=== PATIENT | female | born 1950 | race Two or more races ===

== ENCOUNTER 2024-10-16 06:15 | Inpatient (IN) | payer OTHER ==
[~2024-10-16] VITALS: Ht 153 cm; Wt 93.5 kg
[2024-10-16] VITALS (7 sets, daily range): BP systolic 101–176; BP diastolic 48–73; PULSE 53–85; RESP 13–18; TEMP 97.5–97.7; O2SAT 72–100
[~2024-10-16 06:15] MED LIST: MELO7.5T7 PO; METF-370 PO; OMEP-448 PO
[2024-10-16] MEDS: ceFAZolin 2 GM/D5W100ml 100 ML IV ONE (06:24)
[2024-10-16] MEDS: TRANEXAMIC ACID 20 ML ONE (06:33)
[2024-10-16] MEDS ORDERED: MORPHINE SULF PF 5 MG/10 ML VIAL ONE (06:38)
[2024-10-16] MEDS ORDERED: KETOROLAC TROMETH 30 MG/ML 1ML VIAL ONE (06:39)
[2024-10-16] MEDS: PREGABALIN CAPSULE 75 MG CAP PO ONE (06:45)
[2024-10-16] MEDS: ACETAMINOPHEN IV 1000 MG/100ML (10MG/ML) IV ONE (06:45)
[2024-10-16] MEDS: CELECOXIB 100 MG CAP PO ONE (06:45)
[2024-10-16] MEDS ORDERED: fentaNYL CITRATE 100 MCG/2 ML VL ONE (07:02)
[2024-10-16] MEDS ORDERED: PROPOFOL 10 MG/ML 20 ML IV ONE (07:02)
[2024-10-16] MEDS ORDERED: MIDAZOLAM HCL 2MG/2ML 2ml VIAL (1mg/ml) ONE (07:02)
[2024-10-16] MEDS ORDERED: PHENYLEPHRINE HCL 10 MG/ML VL ONE (07:06)
[2024-10-16] MEDS ORDERED: MORPHINE SULFATE INJ 2 MG/ml SYRG IV PRN (07:30)
[2024-10-16] MEDS: LACTATED RINGER'S 1,000 ML IV SCH (07:30)
[2024-10-16] MEDS ORDERED: NITROGLYCERIN 0.4 MG SL TAB SL PRN (07:30)
[2024-10-16] MEDS ORDERED: DEXTROSE (50%) 50ML SYRG IV PRN (07:30)
[2024-10-16] MEDS: ceFAZolin 1GM/50ML 50 ML IV SCH (07:30)
[2024-10-16] MEDS: CEFEPIME 1GM/ 50ML 50 ML IV ONE (07:41)
[2024-10-16] MEDS: BUPIVACAINE 0.25% INJ 50ML VIAL ONE (08:28)
[2024-10-16] MEDS ORDERED: HYDROmorphone HCL 2 MG/ML VL/or syr IV PRN (09:00)
[2024-10-16] MEDS: ONDANSETRON HCL 4 MG/2 ML VIAL IV ONE (09:00)
[2024-10-16] MEDS ORDERED: MEPERIDINE HCL (25 MG/ML) 1ML VIAL IV PRN (09:00)
[2024-10-16] MEDS: ENOXAPARIN SOD 40 MG/0.4 ML SYRINGE SC SCH (10:00)
[2024-10-16] MEDS: CEFEPIME 1GM/ 50ML 50 ML IV SCH (10:00)
[2024-10-16] MEDS: VANCOMYCIN HCL 1000 MG VL ONE (10:15)
[2024-10-16] MEDS: ACCU-CHEK COMFORT CURVE STRIP VI SCH (11:30)
[2024-10-16] MEDS: InsuLIN REG 1unit/0.01ml Soln (100units/ml) SC SCH (11:30)
--- NOTE | 2024-10-16 11:31 | DVH ---
CLINICAL INDICATION: S/P SURGERY TECHNIQUE: XY R KNEE 3V XRAY Comparison: None FINDINGS/IMPRESSION: There is no evidence of acute fracture or dislocation. Right total knee arthroplasty. The alignment is anatomical. There is no radiopaque foreign body.
[2024-10-16] MEDS: PANTOPRAZOLE 40 MG/10 ML VIAL INJ IV SCH (13:30)
[2024-10-16] MEDS: DOCUSATE SOD 100 MG CAP PO SCH (13:37)
[2024-10-16] MEDS: SODIUM CHLOR 0.9% PF (SALINE LOCK) 10ML VIAL/SYR IV SCH (14:00)
[2024-10-16] MEDS: HYDROmorphone HCL 2 MG/ML VL/or syr ONE (14:20)
[2024-10-16] MEDS: ONDANSETRON HCL 4 MG/2 ML VIAL IV PRN (16:18)
--- NOTE | 2024-10-16 16:26 | DVHINCON2 ---
Date Seen: Oct 16, 2024 Referring Physician Orthopedic surgeon. Reason for Consultation Medical management. History of Present Illness 74-year-old female with a known history of diabetes mellitus type 2, GERD, previous history of total colectomy, previous history of cataract surgery who initially presented to the hospital for elective surgery for degenerative joint disease of the right knee status post right total knee arthroplasty. Patient was seen in recovery room in the presence of nurse. Patient denies any complaints denies any fever chills cough or phlegm. Past Medical History Diabetes mellitus type 2 GERD Degenerative joint disease of the right knee Past Surgical History Total abdominal hysterectomy Cataract surgery Status post right total knee arthroplasty. Allergies: Coded Allergies: Iodine (Verified Allergy, Unknown, 10/16/24) Home Meds Reported Medications Omeprazole (Omeprazole Dr) 40 Mg Cap, 40 MG PO DAILY, CAP 10/13/24 Metformin Hydrochloride (Metformin Hcl) 500 Mg Tab, 500 MG PO, TAB 10/13/24 Meloxicam (Meloxicam) 7.5 Mg Tab, 7.5 MG PO DAILY, TAB 10/13/24 Current Medications Current Medications Medications (Trade) Dose Ordered Sig/Pepe Route PRN Reason Start Time Stop Time Status Last Admin Lactated Ringer's 1,000 ml @ 100 mls/hr Q10H IV 10/16/24 07:30 Sodium Chloride (Saline Lock Ns) 10 ml Q8HR IV 10/16/24 14:00 10/16/24 14:00 Cefazolin Sodium 50 ml @ 50 mls/hr Q6H IV 10/16/24 07:30 10/16/24 20:29 10/16/24 13:39 Oxycodone/ Acetaminophen (Percocet 5/ 325MG Tablet) 1 tab Q4HP PRN PO MODERATE PAIN 10/16/24 07:30 Hydromorphone HCl (Dilaudid Injection) 1 mg Q2HP PRN IV SEVERE PAIN (7-10 PAIN SCALE) 10/16/24 07:30 Ondansetron HCl (Zofran) 4 mg Q6HP PRN IV NAUSEA / VOMITING 10/16/24 07:30 Docusate Sodium (Colace Capsule) 100 mg Q12HR PO 10/16/24 10:00 10/16/24 13:37 Enoxaparin Sodium (Lovenox) 40 mg DAILY SC 10/16/24 10:00 Nitroglycerin (Ntrostat Sublingual) 0.4 mg Q5MINP PRN SL FOR CHEST PAIN 10/16/24 07:30 Morphine Sulfate 2 mg Q30M PRN IV FOR CHEST PAIN 10/16/24 07:30 Pantoprazole Sodium (Protonix) 40 mg DAILY IV 10/16/24 10:00 10/16/24 13:30 Cefepime HCl 50 ml @ 12.5 mls/hr DAILY IV 10/16/24 10:00 Diagnostic Test (Pha) (Accu-Chek Comfort Curve T) 1 strip ACHS 10/16/24 11:30 10/16/24 11:30 Insulin Human Regular (InsuLIN R) ACHS SC 10/16/24 11:30 Dextrose 50 ml UD PRN IV Blood Sugar LESS THAN 60 10/16/24 07:30 Hydromorphone HCl (Dilaudid Injection) 0.5 mg Q10M PRN IV SEVERE PAIN (7-10 PAIN SCALE) 10/16/24 09:00 10/16/24 09:41 DC Meperidine HCl (Demerol Injection) 25 mg Q10M PRN IV MODERATE PAIN (4-6 PAIN SCALE) 10/16/24 09:00 10/16/24 09:31 DC Review of Systems Twelve review of system were negative except mentioned above. Vital Signs Vital Signs Date Time Temp Pulse Resp B/P (MAP) Pulse Ox O2 Delivery O2 Flow Rate FiO2 10/16/24 15:26 97.7 67 18 101/48 (65) 95 97.7 10/16/24 08:42 Mask 9.0 Physical Exam HEENT pupils are reactive Neck is supple CV is S1-S2 regular rate and rhythm Respiratory diminished breath sound bases GI posterior bowel sound Extremity no edema TELLER no motor deficits Assessment 74-year-old female with a known history of diabetes mellitus type 2, GERD, who was brought in by orthopedic spine surgery for elective procedure. 1. Diabetes mellitus type 2 2. GERD 3. Status post right total knee arthroplasty -Accu-Cheks Q a.c. and HS, low-dose insulin sliding scale. -pain meds as needed, DVT GI prophylaxis, physical therapy evaluation and treatment -discharge plan Plan discussed with: Patient Date of Service: Oct 16, 2024 Billing Provider: COTY CAMACHO MD Common Visit Codes: NOT BILLABLE COTY CAMACHO MD Oct 16, 2024 16:26
[2024-10-16] MEDS: HYDROmorphone HCL 2 MG/ML VL/or syr IV PRN (23:18)
[2024-10-17] VITALS (10 sets, daily range): BP systolic 101–138; BP diastolic 45–67; PULSE 62–82; RESP 13–18; TEMP 97.3–98.5; O2SAT 91–100
--- NOTE | 2024-10-17 08:06 | DVHPN2 ---
Progress Note Date Seen: Oct 17, 2024 Medical Necessity Reason Pt with a Central, PICC or Fol: No Subjective Patient reports: No new complaints Objective vital signs Vital Sign Date Time Temp Pulse Resp B/P (MAP) Pulse Ox O2 Delivery O2 Flow Rate FiO2 10/17/24 05:00 97.3 62 18 106/50 (68) 100 97.3 10/16/24 20:00 Nasal Cannula* 2 28 Total Intake and Output 10/16/24 10/16/24 10/17/24 15:00 23:00 07:00 Intake Total 200 ml Output Total 0 ml Balance 0 ml 200 ml medications Current Medications Medications Dose Ordered Sig/Pepe Route Start Time Stop Time Status Last Admin Dose Admin Lactated Ringer's 1,000 ml @ 100 mls/hr Q10H IV 10/16/24 07:30 10/17/24 05:16 100 MLS/HR Sodium Chloride 10 ml Q8HR IV 10/16/24 14:00 10/17/24 05:17 10 ML Oxycodone/ Acetaminophen 1 tab Q4HP PRN PO 10/16/24 07:30 Hydromorphone HCl 1 mg Q2HP PRN IV 10/16/24 07:30 10/16/24 23:18 1 MG Ondansetron HCl 4 mg Q6HP PRN IV 10/16/24 07:30 10/16/24 16:18 4 MG Docusate Sodium 100 mg Q12HR PO 10/16/24 10:00 10/16/24 22:10 100 MG Enoxaparin Sodium 40 mg DAILY SC 10/16/24 10:00 Nitroglycerin 0.4 mg Q5MINP PRN SL 10/16/24 07:30 Morphine Sulfate 2 mg Q30M PRN IV 10/16/24 07:30 Pantoprazole Sodium 40 mg DAILY IV 10/16/24 10:00 10/16/24 13:30 40 MG Cefepime HCl 50 ml @ 12.5 mls/hr DAILY IV 10/16/24 10:00 Diagnostic Test (Pha) 1 strip ACHS 10/16/24 11:30 10/17/24 06:49 1 STRIP Insulin Human Regular ACHS SC 10/16/24 11:30 Dextrose 50 ml UD PRN IV 10/16/24 07:30 Examination: GENERAL:Normal Problem List/Assessment/Plan Problem List/Assessment/Plan 74 year old female who is s/p Right TKA POD 1 1. Pain control 2. WBAT RLE 3. physical therapy 4. CPM as ordered 5. d/c planning for home tomorrow with home health with in home physical therapy 6. Patient has post-op prescriptions for percocet, colace and lovenox sent on 10/12/2024 at [facility] in [place] 7. follow up on 11/01/2024 at 11:00 Plan discussed with: Patient Date of Service: Oct 17, 2024 Billing Provider: CALVIN DAVID MD Common Visit Codes: NOT BILLABLE KRISTYN ABRAHAM NP Oct 17, 2024 08:06
[2024-10-17 09:07] LABS: Hematocrit 34.6 % (36.0-46.0); Hemoglobin 11.4 g/dL (12.2-16.2)
[2024-10-17 09:33] LABS: Alanine Aminotransferase 15 U/L (7-40); Albumin 3.5 g/dL (3.2-4.8); Alkaline Phosphatase 74 U/L (46-116); Anion Gap 8 (5-15); Aspartate Aminotransferase 21 U/L (13-40); BUN/Creatinine Ratio 26.8 (10.0-20.0); Bilirubin, Total 0.6 mg/dL (0.2-1.0); Blood Urea Nitrogen 15 mg/dL (9-23); Calcium 9.4 mg/dL (8.7-10.4); Carbon Dioxide 27 mmol/L (20-31); Chloride 104 mmol/L (98-107); Potassium 4.1 mmol/L (3.5-5.1); Sodium 139 mmol/L (136-145)
[2024-10-17 09:46] LABS: Glucose 117 mg/dL (74-106); Total Protein 5.6 g/dL (5.7-8.2)
[2024-10-17] MEDS: ACETAMINOPHEN 325 MG TAB PO PRN (16:24)
--- NOTE | 2024-10-17 18:01 | DVHPN2 ---
Subjective Overnight events noted. Patient was with the physical therapy today sternal lot of pain in the right knee. Reviewed: Care Plan Changes from previous H/P or p: No Changes Objective Vitals Vital Signs Date Time Temp Pulse Resp B/P (MAP) Pulse Ox O2 Delivery O2 Flow Rate FiO2 10/17/24 17:00 98.3 77 18 123/48 (73) 93 98.3 10/17/24 15:26 Nasal Cannula* 2 28 Intake/Output Intake and Output 10/17/24 07:00 Intake Total 200 ml Output Total 0 ml Balance 200 ml Intake Oral 200 ml Output Urine Total 0 ml # Voids 1 Exam HEENT pupils are reactive Neck is supple CV is S1-S2 regular rate and rhythm Diminished breath sounds bases GI positive bowel sound Extremity no edema [employer] no motor deficit Medications Current Medications Medications Dose Ordered Sig/Pepe Route Start Time Stop Time Status Last Admin Dose Admin Lactated Ringer's 1,000 ml @ 100 mls/hr Q10H IV 10/16/24 07:30 10/17/24 05:16 100 MLS/HR Sodium Chloride 10 ml Q8HR IV 10/16/24 14:00 10/17/24 16:52 10 ML Oxycodone/ Acetaminophen 1 tab Q4HP PRN PO 10/16/24 07:30 Hydromorphone HCl 1 mg Q2HP PRN IV 10/16/24 07:30 10/17/24 09:40 1 MG Ondansetron HCl 4 mg Q6HP PRN IV 10/16/24 07:30 10/16/24 16:18 4 MG Docusate Sodium 100 mg Q12HR PO 10/16/24 10:00 10/17/24 09:33 100 MG Enoxaparin Sodium 40 mg DAILY SC 10/16/24 10:00 10/17/24 09:34 40 MG Nitroglycerin 0.4 mg Q5MINP PRN SL 10/16/24 07:30 Morphine Sulfate 2 mg Q30M PRN IV 10/16/24 07:30 Pantoprazole Sodium 40 mg DAILY IV 10/16/24 10:00 10/17/24 09:34 40 MG Cefepime HCl 50 ml @ 12.5 mls/hr DAILY IV 10/16/24 10:00 10/17/24 09:40 12.5 MLS/HR Diagnostic Test (Pha) 1 strip ACHS 10/16/24 11:30 10/17/24 11:30 1 STRIP Insulin Human Regular ACHS SC 10/16/24 11:30 10/17/24 17:53 2 UNITS Dextrose 50 ml UD PRN IV 10/16/24 07:30 Acetaminophen 650 mg Q4HP PRN PO 10/17/24 15:45 10/17/24 16:24 650 MG Laboratory Results Laboratory Tests 10/17/24 07:00 Chemistry Test 10/17/24 07:00 Albumin 3.5 g/dL (3.2-4.8) Calcium Level 9.4 mg/dL (8.7-10.4) Total Protein 5.6 g/dL (5.7-8.2) L LFT Test 10/17/24 07:00 Alanine Aminotransferase (ALT) 15 U/L (7-40) Alkaline Phosphatase 74 U/L (46-116) Aspartate Amino Transferase (AST) 21 U/L (13-40) Total Bilirubin 0.6 mg/dL (0.2-1.0) Assessment/Plan Assessment/Plan 74-year-old female with a known history of diabetes mellitus type 2, GERD, who was brought in by orthopedic spine surgery for elective procedure. 1. Diabetes mellitus type 2 2. GERD 3. Status post right total knee arthroplasty -physical therapy evaluation and treatment, pain meds as needed, DVT GI prophylaxis -discharge plan per Orthopedics. Plan discussed with: Patient My Orders Orders - COTY CAMACHO MD Procedure Category Date Status Time Acetaminophen Tablet PHA 10/17/24 In Process (Tylenol Tablet) 15:45 Date of Service: Oct 17, 2024 Billing Provider: COTY CAMACHO MD Common Visit Codes: NOT BILLABLE COTY CAMACHO MD Oct 17, 2024 18:01
[2024-10-17] MEDS: OXYCODONE W/ ACETAMINOPHEN 5/325MG TABLET PO PRN (22:09)
[2024-10-18] VITALS (9 sets, daily range): BP systolic 112–147; BP diastolic 44–65; PULSE 74–91; RESP 13–20; TEMP 97.8–98.7; O2SAT 93–100
[2024-10-18 06:32] LABS: Hematocrit 32.1 % (36.0-46.0); Hemoglobin 10.6 g/dL (12.2-16.2)
--- NOTE | 2024-10-18 16:10 | DVHOP2 ---
Operative Report - 2 Report Details Date: 10/16/24 Preop Diagnosis: Right knee osteoarthritis Postop Diagnosis: as above Surgeon: Sudhir David MD Nursing Home Manager: Nikko GAMBOA Anesthesiologist: Willard CAMERON Anesthesia: Regional Implant: [employer] uncemented CR knee Consent: The patient was informed of the risks and benefits of the procedure. These include but are not limited to complications of anesthesia, postoperative infection, incomplete relief of symptoms, recurrence of symptoms, damage to blood vessels, nerves and tendons, deep venous thrombosis, pulmonary embolism and possible need for repeat surgery in the future. Estimated Blood Loss: 50 cc Name of Procedure Performed Right total knee arthroplasty with computer navigation Procedure Details Procedure Details: FINDINGS: degenerative disease with grade IV changes with valugus deformity INDICATION: This patient has failed non-operative treatments for knee arthritis and is now indicated for a total knee replacement. Preoperatively in the waiting area as well as in the office, I had a long discussion with the patient regarding the plan, the expected outcome, the risks, benefits, and alternatives of surgery. The risks include, but are not limited to, infection (which may require future surgery and removal of implants) , bleeding (which may require a transfusion), damage to nerves, arteries, veins, tendons, muscles and other adjacent structures. Also discussed the possibilities of intraoperative fractures, implant loosening, heterotopic bone formation, and revision for variety of reasons, and medical complications etc. This was discussed at length and consent has been obtained. DESCRIPTION OF PROCEDURE: In the preoperative holding area, the consent was re viewed and the appropriate extremity was verified by the patient and marked with my initials. The patient was then transferred to the operating theatre. Appropriate anesthesia was induced. All bony prominences were well padded. A time out was performed verifying the side and site of surgery according to standard protocol. Preoperative antibiotics were given 10 minutes prior to gino rniquet inflation. Tranexamic was given. A well padded thigh tourniquet was applied. The extremity was then prepped and draped in the usual sterile fashion. The extremity was exsanguinated and the tourniquet was inflated. We then made a mid-line incision, which we continued to the underlying capsular tissue. We performed a medial parapatellar arthrotomy. We periosteally exposed the proximal tibia, excised the anterior fat pad and synovium from the distal aspect of the femur. We then subluxed the patella and brought the knee up into flexion. The lateral meniscus, ACL were released. We used the appropriate guide with attached computer navigation to secure the distal femoral cutting block to the femur with pins and completed the distal femoral cut in 0 degrees to the mechanical axis with an oscillating saw. We removed the distal femoral cutting block and turned our attention to the tibia. We used the extramedullary tibial alignment guide with computer navigation to secure the proximal tibial cutting block to the tibia with pins, setting it for a 1mm cut from the more involved side, medially and completed the proximal tib ial cut. We then used the spacer block and alignment josé to check the varus- valgus angle of our cuts and the extension gap. Patient noted to be tight medially that was tight so medial release done. The knee was then balanced in extension to varus/valgus stress. We marked our femoral anatomy, including Leon's line and the epicondylar axis. Using that as a rotational guide, we used the sizing guide to size our femur properly, using a stylus to ensure there would be no notching. We then used the AP cutting guide to make our anterior and posterior cuts and chamfer cuts with an oscillating saw. We again checked the flexion and extension gaps and coronal balancing. Next, we sized our tibia and secured a baseplate with appropriate rotation with pins. We placed a trial femur in position and completed preparation of the notch with reamers and box osteotome and placed a trial notch in position. We used trials to choose our liner size and then placed the liner in place and reduced the knee. We used an oscillating saw to resurface the patella, and used a guide to choose the button size and completed patella preparation with the drill. We then placed a trial button in place. At this point, we checked our seven parameters: 1) Limb alignment 2) Extension 3) Flexion against gravity 4) Flexion stability 5) Varus-valgus balancing 6) Component rotation 7) Patella tracking We were satisfied with these and removed all trials with the exception of the baseplate. We completed preparation of the tibia with the appropriate reamer and keel impactor and then removed the baseplate. We placed a bone plug in the distal femur and then irrigated and dried all bony surfaces and injected our pain cocktail. We impacted our tibial, femoral and patellar components into position. Excess cement was removed with curettes. We impacted our liner and reduced the knee and held it with axial loading until all cement hardened. We did a yifan-articular cocktail block. We released the tourniquet and achieved hemostasis where necessary. A dilute betadine solution (17.5mL in 500mL saline) was used to wash the joint and left to sit for 3 minutes. This was then irrigated out with copious amounts of pulse lavage. We sprinkled 1g vancomycin powder below the fascia and 1g above the f ascia. We copiously irrigated the knee. We re-checked our seven parameters. We closed our capsular incision with a PDS style suture. We irrigated further. We closed the subcutaneous tissue with Vicryl suture and re-approximated the skin with [facility]. We verified all lower extremity compartments were soft and compressible and that we had intact distal pulses. We wrapped the extremity in sterile Webril and aneudy bandage. The patient was transferred to the recovery room in stable condition. Condition Good Disposition Still a Patient SUDHIR DAVID MD Oct 18, 2024 16:10
[2024-10-18] MEDS ORDERED: NALO4SPR2 (16:24)
[2024-10-18] MEDS ORDERED: PERCOT PO (16:24)
[2024-10-18] MEDS ORDERED: SENN-58 PO (16:24)
[2024-10-18] MEDS ORDERED: APIX5TAB PO (16:24)
--- NOTE | 2024-10-18 16:26 | DVHDS2 ---
Discharge Summary Date of Admission Oct 16, 2024 at 07:18 Date of Discharge: Oct 19, 2024 Labs/Diagnostic Data: Laboratory Results Test 10/18/24 04:45 10/17/24 07:00 Hemoglobin 10.6 g/dL (12.2-16.2) Hematocrit 32.1 % (36.0-46.0) Sodium Level 139 mmol/L (136-145) Potassium Level 4.1 mmol/L (3.5-5.1) Chloride Level 104 mmol/L (98-107) Carbon Dioxide Level 27 mmol/L (20-31) Anion Gap 8 (5-15) Blood Urea Nitrogen 15 mg/dL (9-23) Creatinine 0.56 mg/dL (0.550-1.02) Glomerular Filtration Rate Calc 97 mL/min (>90) BUN/Creatinine Ratio 26.8 (10.0-20.0) Serum Glucose 117 mg/dL (74-106) Calcium Level 9.4 mg/dL (8.7-10.4) Total Bilirubin 0.6 mg/dL (0.2-1.0) Aspartate Amino Transferase (AST) 21 U/L (13-40) Alanine Aminotransferase (ALT) 15 U/L (7-40) Alkaline Phosphatase 74 U/L (46-116) Total Protein 5.6 g/dL (5.7-8.2) Albumin 3.5 g/dL (3.2-4.8) Other Laboratory Tests 10/18/24 04:45 10/17/24 07:00 Brief Hx & Hospital Course: 74-year-old female with a known history of diabetes mellitus type 2, GERD, previous history of total colectomy, previous history of cataract surgery who initially presented to the hospital for elective surgery for degenerative joint disease of the right knee status post right total knee arthroplasty. Patient was seen in recovery room in the presence of nurse. Patient denies any complaints denies any fever chills cough or phlegm. Postop patient clinically did well. No acute medical issues identified. Continued on her home medications. Patient underwent physical therapy evaluation and getting out of bed ambulating with therapy. Therefore it is felt she could be safely discharged home with continued outpatient therapy and follow up with orthopedic surgeon. Patient is advised to continue the medications as prescribed. She was also told about risks of bleeding and prevention of DVT with anticoagulation Eliquis. Patient is given pain medication and Narcan in case if she overdoses on pain medications. Discussed with the nurse regarding discharge plan. Operations or Procedures Operative Report - 2 Report Details Date: 10/16/24 Preop Diagnosis: Right knee osteoarthritis Postop Diagnosis: as above Surgeon: Sudhir Sorenson MD Net Software Developer: Nikko GAMBOA Anesthesiologist: Willard CAMERON Anesthesia: Regional Implant: [employer] uncemented CR knee Consent: The patient was informed of the risks and benefits of the procedure. These include but are not limited to complications of anesthesia, postoperative infection, incomplete relief of symptoms, recurrence of symptoms, damage to blood vessels, nerves and tendons, deep venous thrombosis, pulmonary embolism and possible need for repeat surgery in the future. Estimated Blood Loss: 50 cc Name of Procedure Performed Right total knee arthroplasty with computer navigation Procedure Details Procedure Details: FINDINGS: degenerative disease with grade IV changes with valugus deformity INDICATION: This patient has failed non-operative treatments for knee arthritis and is now indicated for a total knee replacement. Preoperatively in the waiting area as well as in the office, I had a long discussion with the patient regarding the plan, the expected outcome, the risks, benefits, and alternatives of surgery. The risks include, but are not limited to, infection (which may require future surgery and removal of implants) , bleeding (which may require a transfusion), damage to nerves, arteries, veins, tendons, muscles and other adjacent structures. Also discussed the possibilities of intraoperative fractures, implant loosening, heterotopic bone formation, and revision for variety of reasons, and medical complications etc. This was discussed at length and consent has been obtained. DESCRIPTION OF PROCEDURE: In the preoperative holding area, the consent was reviewed and the appropriate extremity was verified by the patient and marked with my initials. The patient was then transferred to the operating theatre. Appropriate anesthesia was induced. All bony prominences were well padded. A time out was performed verifying the side and site of surgery according to standard protocol. Preoperative antibiotics were given 10 minutes prior to tourniquet inflation. Tranexamic was given. A well padded thigh tourniquet was applied. The extremity was then prepped and draped in the usual sterile fashion. The extremity was exsanguinated and the tourniquet was inflated. We then made a mid-line incision, which we continued to the underlying capsular tissue. We performed a medial parapatellar arthrotomy. We periosteally exposed the proximal tibia, excised the anterior fat pad and synovium from the distal aspect of the femur. We then subluxed the patella and brought the knee up into flexion. The lateral meniscus, ACL were released. We used the appropriate guide with attached computer navigation to secure the distal femoral cutting block to the femur with pins and completed the distal femoral cut in 0 degrees to the mechanical axis with an oscillating saw. We removed the distal femoral cutting block and turned our attention to the tibia. We used the extramedullary tibial alignment guide with computer navigation to secure the proximal tibial cutting block to the tibia with pins, setting it for a 1mm cut from the more involved side, medially and completed the proximal tibial cut. We then used the spacer block and alignment josé to check the varus- valgus angle of our cuts and the extension gap. Patient noted to be tight medially that was tight so medial release done. The knee was then balanced in extension to varus/valgus stress. We marked our femoral anatomy, including Chacho's line and the epicondylar axis. Using that as a rotational guide, we used the sizing guide to size our femur properly, using a stylus to ensure there would be no notching. We then used the AP cutting guide to make our anterior and posterior cuts and chamfer cuts with an oscillating saw. We again checked the flexion and extension gaps and coronal balancing. Next, we sized our tibia and secured a baseplate with appropriate rotation with pins. We placed a trial femur in position and completed preparation of the notch with reamers and box osteotome and placed a trial notch in position. We used trials to choose our liner size and then placed the liner in place and reduced the knee. We used an oscillating saw to resurface the patella, and used a guide to choose the button size and completed patella preparation with the drill. We then placed a trial button in place. At this point, we checked our seven parameters: 1) Limb alignment 2) Extension 3) Flexion against gravity 4) Flexion stability 5) Varus-valgus balancing 6) Component rotation 7) Patella tracking We were satisfied with these and removed all trials with the exception of the baseplate. We completed preparation of the tibia with the appropriate reamer and keel impactor and then removed the baseplate. We placed a bone plug in the distal femur and then irrigated and dried all bony surfaces and injected our pain cocktail. We impacted our tibial, femoral and patellar components into position. Excess cement was removed with curettes. We impacted our liner and reduced the knee and held it with axial loading until all cement hardened. We did a yifan-articular cocktail block. We released the tourniquet and achieved hemostasis where necessary. A dilute betadine solution (17.5mL in 500mL saline) was used to wash the joint and left to sit for 3 minutes. This was then irrigated out with copious amounts of pulse lavage. We sprinkled 1g vancomycin powder below the fascia and 1g above the fascia. We copiously irrigated the knee. We re-checked our seven parameters. We closed our capsular incision with a PDS style suture. We irrigated further. We closed the subcutaneous tissue with Vicryl suture and re-approximated the skin with [place]. We verified all lower extremity compartments were soft and compressible and that we had intact distal pulses. We wrapped the extremity in sterile Webril and aneudy bandage. The patient was transferred to the recovery room in stable condition. Condition Good Condition at Discharge: Stable Final Diagnosis/Problems List Knee osteoarthritis status post knee replacement surgery Discharge Disposition: Home with Health Services Discharge Instruct/Medications Diet: Consistent carbohydrate, Cardiac 2g Na,low cholest Activity: No Restrictions, As Tolerated Activity comment: With a walker Follow Up/Referral: Dr. Delta Peguero orthopedic next week in the office Medications: As prescribed and home medications per discharge list New Medications: Apixaban Base (Eliquis) 5 Mg Tab 2.5 MG PO BID for 12 Days, #12 TAB Naloxone HCl (Narcan) 4 Mg/0.1 Ml Spr 4 MG NA Q5MINP PRN, #1 SPRAY Oxycodone W/ Acetaminophen (Percocet 5/325MG) 1 Tab Tb 1 TAB PO Q6HPRN PRN, #21 TAB Senna (Senokot) 8.6 Mg Tab 1 TAB PO BID, #14 TAB Continued Medications: Metformin Hydrochloride (Metformin Hcl) 500 Mg Tab 500 MG PO, TAB Omeprazole (Omeprazole Dr) 40 Mg Cap 40 MG PO DAILY, CAP Discontinued Medications: Meloxicam (Meloxicam) 7.5 Mg Tab 7.5 MG PO DAILY, TAB Discharge Statement: "Patient was advised to return to the ER or call 911 if any headaches, dizziness, shortness of breath, chest pain, abdominal pain, bleeding, fevers, or worsening of medical condition. Patient was counseled about treatment plan, medications, possible side effects, patientverbalized understanding. All questions were answered to the best of my ability. This discharge took greater then 30 minutes in planning, reviewing documentation, counseling the patient, and discussing with other team members." ASSESSMENT ASSESSMENT Assessment Knee osteoarthritis status post knee replacement surgery BRANDON CARDENAS MD Oct 18, 2024 16:26
[2024-10-18] MEDS: OXYCODONE W/ ACETAMINOPHEN 5/325MG TABLET PO PRN (17:33)
[2024-10-19 00:50] VITALS: BP 129/52; PULSE 85; RESP 17; TEMP 99; O2SAT 91
[2024-10-19 05:00] VITALS: BP 122/46; PULSE 83; RESP 17; TEMP 98; O2SAT 94
[2024-10-19] MEDS: oxyCODONE ER 10 MG TAB PO SCH (05:51)
[2024-10-19 07:13] LABS: Hemoglobin 10.7 g/dL (12.2-16.2)
[2024-10-19 08:00] VITALS: PULSE 78
[2024-10-19 09:00] VITALS: BP 149/69; PULSE 80; RESP 16; TEMP 97.8; O2SAT 98
[2024-10-19 10:11] VITALS: TEMP 36.7
== END 2024-10-19 12:16 | disposition home health service (06) | DRG 470 ==
LOC: SUR 06:15 → OVERFLOW 07:18 → TELE 09:58 → TELE-WESTW 15:15
PROVIDERS: ADMIT Orthopaedic Surgery Adult Reconstructive Orthopaedic Surgery; ATTEND Orthopaedic Surgery Adult Reconstructive Orthopaedic Surgery
PROC: 8E0YXBZ Computer Assisted Procedure of Lower Extremity (ICD-10-PCS; 2024-10-16)
PROC: 0SRC0J9 Replacement of Right Knee Joint with Synthetic Substitute, Cemented, Open Approach (ICD-10-PCS; principal; 2024-10-16 07:14)
DX: M17.11 Unilateral primary osteoarthritis, right knee (principal); E11.9 Type 2 diabetes mellitus without complications; K21.9 Gastro-esophageal reflux disease without esophagitis; Z90.49 Acquired absence of other specified parts of digestive tract; Z90.710 Acquired absence of both cervix and uterus; Z91.041 Radiographic dye allergy status
CPT/HCPCS: 36415; 73562; 80053; 82962; 85014; 85018; 86850; 86900; 86901; 97110; 97116; 97163; 97530; G0378; J0131; J1815; J1885; J2250; J2405; J2470; J2704; J3490

== ENCOUNTER 2025-05-07 12:07 | Emergency (ER) | payer OTHER ==
[~2025-05-07] VITALS: Ht 152.4 cm; Wt 81.0 kg
[~2025-05-07 12:07] MED LIST changes: +APIX5TAB PO; -MELO7.5T7 PO; +NALO4SPR2; +PERCOT PO; +SENN-58 PO
--- NOTE | 2025-05-07 13:50 | ED.PDOC ---
Musculoskeletal HPI Comments 75-year-old female presents to the emergency department with a chief complaint of moderate left ankle pain onset two days. Patient states she woke up 2 days ago and noticed LT ankle pain, swelling, worsens with ambulation. She currently rates her pain as moderate. No other symptoms or modifying factors present at this time. Denies previous surgeries to the ankle Denies fall, injury, LOC, headache Denies dizziness Denies numbness/tingling Denies fever chills night sweats nausea vomiting Chief Complaint: Lower Extremity Time Seen by MD: 13:35 Reviewed Notes: Nurses Notes, Medications, Allergies Allergies: Coded Allergies: Iodine (Verified Allergy, Unknown, 10/16/24) Home Meds Active Scripts Apixaban Base (ELIQUIS) 5 Mg Tab, 2.5 MG PO BID for 12 Days, #12 TAB Prov:BRANDON CARDENAS MD 10/18/24 Senna (Senokot) 8.6 Mg Tab, 1 TAB PO BID, #14 TAB Prov:BRANDON CARDENAS MD 10/18/24 Naloxone HCl (Narcan) 4 Mg/0.1 Ml Spr, 4 MG NA Q5MINP PRN, #1 SPRAY Prov:BRANDON CARDENAS MD 10/18/24 Oxycodone W/ Acetaminophen (Percocet 5/325MG) 1 Tab Tb, 1 TAB PO Q6HPRN PRN, #21 TAB Prov:BRANDON CARDENAS MD 10/18/24 Reported Medications Omeprazole (Omeprazole Dr) 40 Mg Cap, 40 MG PO DAILY, CAP 10/13/24 Metformin Hydrochloride (Metformin Hcl) 500 Mg Tab, 500 MG PO, TAB 10/13/24 Information Source: Patient Mode of Arrival: Ambulatory Location: Left Extremity Location: Ankle Timing: Days Prehospital treatment: None Severity: Moderate Able to Move Extremity: Yes Bear Weight: Limited Pain: Moderate Mechanism: Spontaneous Circumstances: Spontaneous Onset of Symptoms: Spontaneous Symptoms: Swelling, Pain DVT Risk Factors: NONE Last Tetanus: UTD Associated signs and symptoms: Ankle pain Past Medical History PAST MEDICAL HISTORY: Denies Surgical History: Denies all surgeries MVA REACTOR OPERATOR History: No Pertinent MVA REACTOR OPERATOR History Family History Family History: Reviewed,noncontributory to illness, No family hx of Cancer, No family hx of DM, No family hx of Heart martin, No family hx of HTN, No family hx ofKidney martin, No family hx of Liver martin, No family hx of Lung martin, No family hx of Stroke Social History Smoker: Non-Smoker Alcohol: Denies ETOH Use Drugs: Denies Drug Use Lives In: Home All Other Systems: Reviewed and Negative (as per HPI) Physical Exam General Appearance: Normal HEENT: Normal ENT Inspection, Pharynx Normal, TMs Normal Neck: Full Range of Motion, Non-Tender, Normal, Normal Inspection Respiratory: Chest Non-Tender, Lungs Clear, No Accessory Muscle Use, No Respiratory Distress, Normal Breath Sounds Cardiovascular: No Edema, No JVD, No Murmur, No Gallop, Normal Peripheral Pulses, Regular Rate/Rhythm Breast Exam: Deferred Gastrointestinal: No Organomegaly, Non Tender, No Pulsatile Mass, Normal Bowel Sounds, Soft Genitalia: Deferred Pelvic: Deferred Rectal: Deferred Extremities: No calf tenderness, Normal capillary refill, Normal inspection, Normal range of motion, Non-tender, No pedal edema Musculoskeletal : Apperance: Normal Neurologic: Alert, administrative support assoc II-XII nml as Tested, No Motor Deficits, Normal Affect, Normal Mood, No Sensory Deficits Cerebellar Function: Normal Reflexes: Normal Skin: Dry, Normal Color, Warm Lymphatic: No Adenopathy Was a procedure done? Was a procedure done?: No Differential Diagnosis EXT Differential Diagnosis: Fracture, Sprain X-Ray, Labs, Meds, VS Vital Signs Date Time Temp Pulse Resp B/P (MAP) Pulse Ox O2 Delivery O2 Flow Rate FiO2 05/07/25 14:45 97.5 80 18 140/75 (96) 98 97.5 05/07/25 12:30 97.5 80 16 144/80 (101) 95 97.5 X-Ray, Labs, Meds, VS Comment 75-year-old female presents to the emergency department with a chief complaint of moderate to severe left ankle pain onset two days. Patient arrives alert and oriented, ABC's intact, afebrile, vital signs stable, saturating well in room air Diagnostic imaging ordered by me and results interpreted by radiology : no acute findings RICE IBU prn ER precautions Additional MDM Review of External, Non-ED records: External records reviewed. Discussion with independent historian (EMS, family) history obtained from the patient/parents (if applicable) at bedside Chronic conditions affecting care: None Social determinants of health affecting care: None I considered escalation of care to admission for this patient, however given the reassuring workup, the patient is safe for outpatient management. On reevaluation, patient had symptomatic improvement. Patient is stable for discharge at this time. External notes reviewed. Test results and diagnostic imaging interpreted. All diagnostic findings, discharge care, education and instructions provided Follow-up with PCP in 2 to 3 days Patient verbalized understanding and agreed to treatment plan Vital signs stable, afebrile, no acute distress noted Patient ambulatory with strong steady gait Advised to return precautions for any new or worsening symptoms, return to ER immediately for re-evaluation Patient is aware that the purpose of this visit was for an acute medical emergency requiring emergent stabilization. Chronic conditions, including malignancies have not been ruled out. Patient is instructed to follow up with PCP as directed and discharge instructions for continued care and workup. If unable to arrange follow-up, patient is to return to the emergency department for reassessment. Patient (parent or legal guardian if applicable) was given verbal and written discharge instructions and acknowledges understanding. Time of 1ST Reevaluation: 14:05 Reevaluation 1ST: Improved Patient Education/Counseling: Diagnosis, Treatment Family Education/Counseling: No Family Present Departure 1 Departure Time of Disposition: 14:25 Impression: Primary Impression: Ankle sprain Qualified Codes: S93.402A - Sprain of unspecified ligament of left ankle, initial encounter Disposition: HOME / SELF CARE / HOMELESS Condition: Stable Discharged With: Relative Critical Care Note Critical Care Time?: No Stability Stability form required: No Heart Score Heart Score: Heart Score Response (Comments) Value History N/A 0 EKG N/A 0 Age N/A 0 Risk Factors N/A 0 Troponin N/A 0 Total 0 I personally scribed for DARWIN العراقي NP ([email or web address]) on 05/07/25 at 13:49. Electronically submitted by Nicolle Chan ([email or web address]). DARWIN العراقي NP May 07, 2025 13:49
--- NOTE | 2025-05-07 14:18 | DVH ---
EXAM: XY L FOOT 3 VIEW XRAY CLINICAL INDICATION: pain to medial malleolus TECHNIQUE: XY L FOOT 3 VIEW XRAY Comparison: None FINDINGS/IMPRESSION: There is no evidence of acute fracture or dislocation. 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 The alignment is anatomical. There is no radiopaque foreign body.
[2025-05-07 14:45] VITALS: BP 140/75; PULSE 80; RESP 18; TEMP 97.5; O2SAT 98
== END 2025-05-07 14:45 | disposition home or self-care (01) ==
LOC: ER 12:07
DX: S93.492A Sprain of other ligament of left ankle, initial encounter (principal); Z79.899 Other long term (current) drug therapy; Z88.8 Allergy status to other drugs, medicaments and biological substances; X58.XXXA Exposure to other specified factors, initial encounter; Y93.89 Activity, other specified; Y92.89 Other specified places as the place of occurrence of the external cause; Y99.8 Other external cause status
CPT/HCPCS: 73630